=== PATIENT | male | born 1990 | race Caucasian/White ===

== ENCOUNTER 2016-07-21 11:09 | Emergency (ER) | payer BC ==
[~2016-07-21] VITALS: Ht 182.9 cm; Wt 87.3 kg
[2016-07-21 11:14] VITALS: TEMP 37.2; O2SAT 97; Ht 182.9 cm; Wt 87.3 kg
--- NOTE | 2016-07-21 11:22 | EMERGENCY ROOM VISIT NOTE ---
History Report prepared by Adilene: Grzegorz Wolf Under the Supervision of: Dr. Dhaval Oconnor D.O. First contact with patient: 11:12 Stated Complaint: UNRESPONSIVE History of Present Illness This HPI is limited due to the unresponsive nature of the patient. The patient is a 26 year old male who presents to the Emergency Room from [facility] after being found unresponsive by nursing staff. The nursing staff states that he was behaving normally this morning, and was found unresponsive one hour prior to arrival. 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 Current/Historical Medications Scheduled Ibuprofen (Motrin), 600 MG PO QID Lamotrigine (Lamictal), 300 MG PO QAM Lamotrigine (Lamictal), 200 MG PO HS Multiple Vitamin (Multi Vitamin), 1 TAB PO DAILY Naltrexone (Vivitrol), 380 MG INJ UD Nicotine (Nicoderm Cq 21MG Patch), 1 PATCH TD DAILY Prazosin Hcl (Prazosin), 1 MG PO HS Propranolol (Inderal), 20 MG PO BID Sertraline (Zoloft), 100 MG PO DAILY Varenicline (Chantix), 1 MG PO DIRECTED Scheduled PRN Hydroxyzine Pamoate (Vistaril), 50 MG PO TID PRN for Anxiety Risperidone (Risperdal), 0.25 MG PO BID PRN for Anxiety Miscellaneous Medications Naltrexone HCl (Naltrexone HCl) Allergies Coded Allergies: Clindamycin (Unverified Allergy, Unknown, ., 07/21/16) Penicillins (Unverified Allergy, Unknown, ., 07/21/16) Quetiapine (Unverified Allergy, Unknown, ., 07/21/16) Valproic Acid (Unverified Allergy, Unknown, ., 07/21/16) Venlafaxine (Unverified Allergy, Unknown, ., 07/21/16) Physical Exam Vital Signs Date Time Temp Pulse Resp B/P (MAP) Pulse Ox O2 Delivery O2 Flow Rate FiO2 07/21/16 15:16 75 16 127/80 97 Room Air 07/21/16 14:40 79 20 126/84 96 Room Air 07/21/16 13:20 67 20 128/78 97 Room Air 07/21/16 13:15 72 07/21/16 12:26 72 18 128/75 97 Room Air 07/21/16 11:14 97 Room Air 07/21/16 11:14 70 07/21/16 11:14 37.2 66 13 123/93 97 Room Air Physical Exam CONSTITUTIONAL/VITAL SIGNS: Patient is minimally responsive to painful stimuli. He was initially speaking repetitively and attempting to say words, although incomprehensible. GENERAL: Non-toxic in appearance. INTEGUMENTARY: Warm, dry, and [place]. HEAD: Normocephalic. EYES: without scleral icterus or trauma. Pupils are 6 mm and respond to light appropriately. ENT/OROPHARYNX: clear and moist. LYMPHADENOPATHY/NECK: Is supple without lymphadenopathy or meningismus. RESPIRATORY: Lungs clear and equal. CARDIOVASCULAR: Regular rate and rhythm. GI/ABDOMEN: Soft and nontender. No organomegaly or pulsatile mass. No rebound or guarding. Normal bowel sounds. EXTREMITIES: Warm and well perfused. BACK: No CVA tenderness. NEUROLOGICAL: Intact without focal deficits. PSYCHIATRIC: normal affect. MUSCULOSKELETAL: Normally developed with good muscle tone. Medical Decision & Procedures ER Provider Diagnostic Interpretation: Radiology results as stated below per my review and radiologist interpretation: CHEST ONE VIEW PORTABLE CLINICAL HISTORY: Evaluate Fever/Sepsis COMPARISON STUDY: No previous studies for comparison. FINDINGS: The bones soft tissues and hemidiaphragms are normal. The cardiomediastinal silhouette is normal. The lungs are clear. The pulmonary vasculature is normal. IMPRESSION: Negative chest. Electronically signed by: Jose Juan Reis M.D. 07/21/2016 11:52 AM Dictated Date/Time: 07/21/2016 11:[address] CT DOSE: 812.17 mGycm HISTORY: Mental status change Evaluate Fever/Sepsis TECHNIQUE: Multiaxial CT images of the head were performed without the use of intravenous contrast. Comparison: None. Findings: The paranasal sinuses and mastoid air cells are clear. The calvarium and skull base are intact. The ventricles and sulci are within normal limits. There is no mass, hematoma, midline shift, or acute infarct. Impression: No acute intracranial abnormality. Electronically signed by: Jose Juan Reis M.D. 07/21/2016 12:27 PM Dictated Date/Time: 07/21/2016 12:27 PM Laboratory Results 07/21/16 10:40 Red Blood Count 4.90, Mean Corpuscular Volume 92.7, Mean Corpuscular Hemoglobin 32.7, Mean Corpuscular Hemoglobin Concent 35.2, Mean Platelet Volume 9.8, Neutrophils (%) (Auto) 63.1, Lymphocytes (%) (Auto) 23.7, Monocytes (%) (Auto) 9.7, Eosinophils (%) (Auto) 2.6, Basophils (%) (Auto) 0.6, Neutrophils # (Auto) 4.95, Lymphocytes # (Auto) 1.86, Monocytes # (Auto) 0.76, Eosinophils # (Auto) 0.20, Basophils # (Auto) 0.05 07/21/16 10:40 Test 07/21/16 10:40 07/21/16 11:49 07/21/16 12:05 07/21/16 12:10 White Blood Count 7.84 K/uL (4.8-10.8) Red Blood Count 4.90 M/uL (4.7-6.1) Hemoglobin 16.0 g/dL (14.0-18.0) Hematocrit 45.4 % (42-52) Mean Corpuscular Volume 92.7 fL (80-100) Mean Corpuscular Hemoglobin 32.7 pg (25-34) Mean Corpuscular Hemoglobin Concent 35.2 g/dl (32-36) Platelet Count 297 K/uL (130-400) Mean Platelet Volume 9.8 fL (7.4-10.4) Neutrophils (%) (Auto) 63.1 % Lymphocytes (%) (Auto) 23.7 % Monocytes (%) (Auto) 9.7 % Eosinophils (%) (Auto) 2.6 % Basophils (%) (Auto) 0.6 % Neutrophils # (Auto) 4.95 K/uL (1.4-6.5) Lymphocytes # (Auto) 1.86 K/uL (1.2-3.4) Monocytes # (Auto) 0.76 K/uL (0.11-0.59) Eosinophils # (Auto) 0.20 K/uL (0-0.5) Basophils # (Auto) 0.05 K/uL (0-0.2) RDW Standard Deviation 46.3 fL (36.4-46.3) RDW Coefficient of Variation 13.6 % (11.5-14.5) Immature Granulocyte % (Auto) 0.3 % Immature Granulocyte # (Auto) 0.02 K/uL (0.00-0.02) Prothrombin Time 11.1 SECONDS (9.0-12.0) Prothromb Time International Ratio 1.0 (0.9-1.1) Activated Partial Thromboplast Time 28.5 SECONDS (21.0-31.0) Partial Thromboplastin Ratio 1.1 Anion Gap 10.0 mmol/L (3-11) Est Creatinine Clear Calc Drug Dose 131.9 ml/min Estimated GFR () 130.1 Estimated GFR (Non- 112.2 BUN/Creatinine Ratio 18.9 (10-20) Calcium Level 8.3 mg/dl (8.5-10.1) Total Bilirubin 0.5 mg/dl (0.2-1) Direct Bilirubin 0.1 mg/dl (0-0.2) Aspartate Amino Transf (AST/SGOT) 38 U/L (15-37) Alanine Aminotransferase (ALT/SGPT) 92 U/L (12-78) Alkaline Phosphatase 66 U/L (45-117) Total Creatine Kinase 80 U/L (39-308) Creatine Kinase MB 0.5 ng/ml (0.5-3.6) Creatine Kinase MB Ratio 0.6 (0-3.0) Troponin I < 0.015 ng/ml (0-0.045) Total Protein 7.5 gm/dl (6.4-8.2) Albumin 3.9 gm/dl (3.4-5.0) Lipase 132 U/L (73-393) Thyroid Stimulating Hormone (TSH) 0.839 uIu/ml (0.300-4.500) Acetaminophen Level < 2 ug/ml (10-30) Bedside Glucose 107 mg/dl (70-99) Arterial Blood pH 7.43 (7.35-7.45) Arterial Blood Partial Pressure CO2 39 mmHg (35-46) Arterial Blood Partial Pressure O2 88 mm/Hg (80-95) Arterial Blood HCO3 25 mmol/L (19-24) Arterial Blood Oxygen Saturation 97.0 % (90-95) Arterial Blood Base Excess 0.9 mEq/L (-9-1.8) Arterial Blood Gas Delivery ROOM AIR Víctor Test POS (POS) Ammonia 37.0 umol/L (11-32) Ethyl Alcohol mg/dL < 3.0 mg/dl (0-3) Test 07/21/16 13:17 Urine Color DK YELLOW Urine Appearance CLEAR (CLEAR) Urine pH 7.0 (4.5-7.5) Urine Specific [place] 1.027 (1.000-1.030) Urine Protein NEG (NEG) Urine Glucose (UA) NEG (NEG) Urine Ketones NEG (NEG) Urine Occult Blood NEG (NEG) Urine Nitrite NEG (NEG) Urine Bilirubin NEG (NEG) Urine Urobilinogen NEG (NEG) Urine Leukocyte Esterase NEG (NEG) Urine WBC (Auto) 1-5 /hpf (0-5) Urine RBC (Auto) 0-4 /hpf (0-4) Urine Hyaline Casts (Auto) 0 /lpf (0-5) Urine Epithelial Cells (Auto) 10-20 /lpf (0-5) Urine Bacteria (Auto) NEG (NEG) Urine Opiates Screen NEG (NEG) Urine Methadone, Qualitative NEG (NEG) Urine Barbiturates NEG (NEG) Urine Phencyclidine (PCP) Level NEG (NEG) Ur Amphetamine/Methamphetamine NEG (NEG) MDMA (Ecstasy) Screen NEG (NEG) Urine Benzodiazepines Screen NEG (NEG) Urine Cocaine Metabolite NEG (NEG) Urine Marijuana (THC) NEG (NEG) Laboratory results as stated above per my review. Medications Administered Medications (Trade) Dose Ordered Sig/Sebastian Route Start Time Stop Time Status Last Admin Dose Admin Sodium Chloride 1,000 ml @ 999 mls/hr Q1H1M STAT IV 07/21/16 11:28 07/21/16 12:28 DC 07/21/16 11:44 999 MLS/HR ECG Indication: syncope Rate (beats per minute): 74 Rhythm: normal sinus Findings: no acute ischemic change, no ectopy ED Course 1112: Previous medical records were reviewed. The patient was evaluated in room B1. A complete history and physical examination was performed. 1128: Ordered Sodium Chloride 1000 mL @ 999 mL/hr IV. 0237: On reevaluation, the patient is resting in bed. I discussed the results and findings with the patient. He verbalized agreement of the treatment plan. The patient was discharged home. Medical Decision Blood pressure Screening: Patient was found to have normal blood pressure on screening and does not require follow-up. Medication Reconciliation: I attest that I have personally reviewed the patient' s current medication list. Differential diagnosis: Etiologies such as metabolic, infection, hypoglycemia, electrolyte abnormalities , cardiac sources, intracerebral event, toxicologic, neurologic, as well as others were entertained. This is a 26-year-old male who presents to the ED with a chief complaint of altered mental status. The patient is currently at [facility] (formerly [facility]3]. The patient is therefore polysubstance abuse but not alcohol. This is per the patient. The patient was found unresponsive was sent here by EMS. EMS did not provide any medication. The patient was initially not responding adequately on his arrival. He was without pain sensation. He was repeating some partial words and did not follow any commands. The patient slowly improved during his ED stay. He stated that he thought his symptoms might be related to increased Chantix. The patient has been in drug rehabilitation's previously. His physical exam was without evidence of trauma. His vital signs were normal. His breathing was normal. His vital signs were normal. EKG showed a normal sinus rhythm. A chest x-ray showed negative for acute disease. CT scan of the brain did not show any acute process. CBC and complete metabolic panel were unremarkable. Troponin is negative. TSH was normal. ABG was normal. Urine did not show infection. Urine tox screen did not show any abnormalities. The patient was told the results of the test. He is currently awake, alert and oriented. He answers questions appropriately and has no complaints. He is felt to be stable for discharge back to [facility]. Impression Primary Impression: Transient alteration of awareness Additional Impression: Unresponsive episode Scribe Attestation The scribe's documentation has been prepared under my direction and personally reviewed by me in its entirety. I confirm that the note above accurately reflects all work, treatment, procedures, and medical decision making performed by me. Departure Information Dispostion Home / Self-Care Additional Instructions Follow-up with your doctor for further care and evaluation in 1-2 days. Return to the emergency department for worsening or new symptoms or any concerns. You have been examined and treated today on an emergency basis only. This is not a substitute for, or an effort to provide, complete comprehensive medical care. It is impossible to recognize and treat all injuries or illnesses in a single emergency department visit. It is therefore important that you follow up closely with your doctor. Call as soon as possible for an appointment. Problem Qualifiers
[2016-07-21] MEDS ORDERED: SODIUM CHLORIDE 0.9% 1000ML 1,000 ML IV STA (11:28)
[2016-07-21 11:43] LABS: BASO % 0.6 %; BASO ABS # 0.05 K/uL (0-0.2); COMPLETE YES; EOS % 2.6 %; HEMATOCRIT 45.4 % (42-52); IG% 0.3 %; LYMPH % 23.7 %; LYMPH ABS # 1.86 K/uL (1.2-3.4); MEAN CELL VOLUME 92.7 fL (80-100); MEAN CORPUSCULAR HEMOGLOBIN 32.7 pg (25-34); MEAN CORPUSCULAR HGB CONC 35.2 g/dl (32-36); MEAN PLATELET VOLUME 9.8 fL (7.4-10.4); MONO % 9.7 %; NEUT % 63.1 %; PLATELET COUNT 297 K/uL (130-400); WHITE BLOOD COUNT 7.84 K/uL (4.8-10.8)
[2016-07-21 11:51] LABS: ALT/SGPT 92 U/L (12-78); AST/SGOT 38 U/L (15-37); BLOOD UREA NITROGEN 18 mg/dl (7-18); BUN/CREATININE RATIO 18.9 (10-20); CALCIUM 8.3 mg/dl (8.5-10.1); CARBON DIOXIDE 24 mmol/L (21-32); CHLORIDE 108 mmol/L (98-107); CREATININE 0.94 mg/dl (0.60-1.40); GLUCOSE 124 mg/dl (70-99); SODIUM 142 mmol/L (136-145)
[2016-07-21 11:52] LABS: PARTIAL THROMBOPLASTIN RATIO 1.1; PROTHROMBIN TIME (PATIENT) 11.1 SECONDS (9.0-12.0)
--- NOTE | 2016-07-21 11:53 | DIAGNOSTIC IMAGING REPORT ---
CHEST ONE VIEW PORTABLE CLINICAL HISTORY: Evaluate Fever/Sepsis COMPARISON STUDY: No previous studies for comparison. FINDINGS: The bones soft tissues and hemidiaphragms are normal. The cardiomediastinal silhouette is normal. The lungs are clear. The pulmonary vasculature is normal. IMPRESSION: Negative chest. Electronically signed by: Jose Juan Reis M.D. 07/21/2016 11:52 AM Dictated Date/Time: 07/21/2016 11:51 AM
[2016-07-21 12:02] LABS: ALKALINE PHOSPHATASE 66 U/L (45-117); CKMB/CK RATIO 0.6 (0-3.0); THYROID STIMULATING HORMONE 0.839 uIu/ml (0.300-4.500)
[2016-07-21 12:29] LABS: ARTERIAL BLOOD GAS BASE EXCESS 0.9 mEq/L (-9-1.8); ARTERIAL BLOOD GAS HCO3 25 mmol/L (19-24); ARTERIAL BLOOD GAS PO2 88 mm/Hg (80-95); ARTERIAL BLOOD GAS pH 7.43 (7.35-7.45)
--- NOTE | 2016-07-21 12:29 | DIAGNOSTIC IMAGING REPORT ---
HEAD CT NONCONTRAST CT DOSE: 812.17 mGycm HISTORY: Mental status change Evaluate Fever/Sepsis TECHNIQUE: Multiaxial CT images of the head were performed without the use of intravenous contrast. Comparison: None. Findings: The paranasal sinuses and mastoid air cells are clear. The calvarium and skull base are intact. The ventricles and sulci are within normal limits. There is no mass, hematoma, midline shift, or acute infarct. Impression: No acute intracranial abnormality. Electronically signed by: Jose Juan Reis M.D. 07/21/2016 12:27 PM Dictated Date/Time: 07/21/2016 12:27 PM
[2016-07-21 12:32] LABS: ALLEN TEST POS (POS)
[2016-07-21 12:33] LABS: O2 ADMINISTRATION ROOM AIR
[2016-07-21] MEDS ORDERED: NICO21DI35 TD (12:59)
[2016-07-21] MEDS ORDERED: LMC/150 PO (12:59)
[2016-07-21] MEDS ORDERED: NALT380I INJ (12:59)
[2016-07-21] MEDS ORDERED: SERT-234 PO (12:59)
[2016-07-21] MEDS ORDERED: IBUP600T44 PO (12:59)
[2016-07-21] MEDS ORDERED: PRAZ1CAP10 PO (12:59)
[2016-07-21] MEDS ORDERED: RISP0.258 PO (12:59)
[2016-07-21] MEDS ORDERED: CHN/1 PO (12:59)
[2016-07-21] MEDS ORDERED: NALT50TA16 (12:59)
[2016-07-21] MEDS ORDERED: LAMO200T38 PO (12:59)
[2016-07-21] MEDS ORDERED: MULT-1027 PO (12:59)
[2016-07-21] MEDS ORDERED: PROP20TA67 PO (12:59)
[2016-07-21] MEDS ORDERED: HYDR50CA2 PO (12:59)
[2016-07-21 13:43] LABS: URINE APPEARANCE CLEAR (CLEAR); URINE BILIRUBIN NEG (NEG); URINE COLOR DK YELLOW; URINE NITRITE NEG (NEG); URINE SPECIFIC GRAVITY 1.027 (1.000-1.030); UROBILINOGEN NEG (NEG); ZZUR CULT IF INDIC CLEAN CATCH NO
[2016-07-21 13:44] LABS: MANUAL MICROSCOPIC REQUIRED? NO; REVIEW REQ? NO
[2016-07-21 14:11] LABS: BENZODIAZEPINE, URINE NEG (NEG); COCAINE,URINE NEG (NEG); PHENCYCLIDINE, URINE NEG (NEG)
[2016-07-21 15:40] VITALS: BP 137/85; PULSE 72; O2SAT 98
== END 2016-07-21 15:50 | disposition home or self-care (01) ==
LOC: EDBD 11:09 → C.EDB 11:12
DX: R40.4 Transient alteration of awareness (principal); Z79.899 Other long term (current) drug therapy; Z88.0 Allergy status to penicillin; Z88.8 Allergy status to other drugs, medicaments and biological substances